=== PATIENT | male | born 1965 | race Caucasian/White ===

== ENCOUNTER 2019-07-15 19:04 | Emergency (ER) | payer OTHER ==
[~2019-07-15] VITALS: Ht 175.3 cm; Wt 110.0 kg
[2019-07-15 19:25] VITALS: BP 138/87
--- NOTE | 2019-07-15 19:34 | PHYS DOC ---
Past History Past Medical History: No Pertinent History Past Surgical History: Other Additional Past Surgical Histo: Wrist Alcohol Use: Rarely Adult General Chief Complaint Chief Complaint: COUGH.. " I traveled to [place].. to citrus pick[place] my son.. I worried I may have gotten CO-19 virus.. ". " He was tested + for Influ. A.... ".. " I ve been exposed to him since .. but I started having a sore throat and fever symptoms since about noon to day.." HPI HPI Patient is a 54 year old male who presents with above hx and complaints of subjective fever, malaise, arthralgia, myalgia, pharyngitis and non-productive cough. . [place] [facility] [place] not get flu vaccination this season. Patient has been exposed to some son who tested positive for influenza A. Patient symptoms seem to start at noon today. Recent travel to [place] and back to [facility] when [place] [facility] [place] No history immunosuppression. No recent overseas travel. Review of Systems Review of Systems Constitutional: Subjective fever or chills [] Eyes: Denies change in visual acuity, redness, or eye pain [] HENT: Complaints the nasal congestion of sore throat [] Respiratory: Denies cough or shortness of breath [] Cardiovascular: No additional information not addressed in HPI [] GI: Denies abdominal pain, nausea, vomiting, bloody stools or diarrhea [] : Denies dysuria or hematuria [] Musculoskeletal: Denies back pain or joint pain [] Integument: Denies rash or skin lesions [] Neurologic: Denies headache, focal weakness or sensory changes [] Endocrine: Denies polyuria or polydipsia [] All other systems were reviewed and found to be within normal limits, except as documented in this note. Family History Family History College son has influenza A Current Medications Current Medications See nursing for home meds Allergies Allergies Allergies Coded Allergies Type Severity Reaction Last Updated Verified No Known Drug Allergies 07/15/19 No Physical Exam Physical Exam Constitutional: Well developed, well nourished, no acute distress, non-toxic appearance. [] HENT: Normocephalic, atraumatic, bilateral external ears normal, oropharynx moist, no oral exudates, postnasal drainage. Mild erythema of pharynx nose slightly swollen turbinates and clear rhinorrhea. Eyes: PERRLA, EOMI, conjunctiva normal, no discharge. [] Neck: Normal range of motion, no tenderness, supple, no stridor. [] Cardiovascular:Heart rate regular rhythm, no murmur [] Lungs & Thorax: Bilateral breath sounds equal at apex on auscultation [] Abdomen: Bowel sounds normal, soft, no tenderness, no masses, no pulsatile masses. [] Skin: Warm, dry, no erythema, no rash. [] Back: No tenderness, no CVA tenderness. [] Extremities: No tenderness, no cyanosis, no clubbing, ROM intact, no edema. [] Neurologic: Alert and oriented X 3, normal motor function, normal sensory function, no focal deficits noted. [] Psychologic: Affect anxious, judgement normal, mood normal. [] Current Patient Data Vital Signs Vital Signs Date Time Temp Pulse Resp B/P (MAP) Pulse Ox O2 Delivery O2 Flow Rate FiO2 07/15/19 19:25 98.5 80 16 138/87 (104) 95 Room Air EKG EKG [] Radiology/Procedures Radiology/Procedures [] Course & Med Decision Making Course & Med Decision Making Pertinent Labs and Imaging studies reviewed. (See chart for details) Push fluids. Get adequate rest. Take Tylenol or ibuprofen for discomfort. Take Tamiflu 75 daily for 10 days and follow-up Olga. Use MDI two puffs four times a day. Recommend self-isolation and/or social isolation. No travel. Avoid crowds. Return if any concerns. [] Impression- 1. Viral syndrome 2. History of exposure to influenza a Dragon Disclaimer Cathy Disclaimer This electronic medical record was generated, in whole or in part, using a voice recognition dictation system. Departure Departure: Disposition: HOME/RESIDENCE PRIOR TO ADM Condition: STABLE Scripts Albuterol Sulfate (VENTOLIN HFA INHALER) 18 Gm Hfa.aer.ad 2 PUFF IH PRN Q4HRS PRN for FOR ASTHMA for 30 Days, INHALER 0 Refills Prov: ANTHONY FERGUSON MD 07/15/19 Oseltamivir Phosphate (TAMIFLU) 75 Mg Capsule 75 MG PO DAILY for Influ. A exposure for 10 Days, #10 CAP Prov: ANTHONY FERGUSON MD 07/15/19 ANTHONY FERGUSON MD Jul 15, 2019 19:34
[2019-07-15] MEDS ORDERED: OSELTAMIVIR 75 MG CAPSULE PO ONE (20:00)
[2019-07-15 20:51] LABS: INFLUENZA A PATIENT NEGATIVE (NEGATIVE); INFLUENZA B PATIENT NEGATIVE (NEGATIVE)
[2019-07-15] MEDS ORDERED: OSEL75CA PO (21:10)
[2019-07-15] MEDS ORDERED: ALBU2.5V8 IH (21:11)
[2019-07-15] MEDS ORDERED: IPRATRPIUM/ALBUTEROL 0.5/2.5MG 3 ML NEBU. NEB ONE (21:15)
== END 2019-07-15 21:26 | disposition home or self-care (01) ==
LOC: ER 19:04
DX: B34.9 Viral infection, unspecified (principal)
CPT/HCPCS: 87070; 87804; 87880; 94640; 99283-25